=== PATIENT | male | born 1965 | race Caucasian/White ===

== ENCOUNTER 2019-08-29 14:38 | Emergency (ER) | payer BC ==
[2019-08-29] MEDS ORDERED: ASPIRIN 81 MG TABLET, CHEWABLE PO ONE (15:01)
--- NOTE | 2019-08-29 15:01 | ER Document Report ---
ED Medical Screen (RME) - General Stated Complaint: CHEST PAIN Time Seen by Provider: 08/29/19 14:57 Primary Care Provider: WILLIAMS RAJPUT MD [Primary Care Provider] - Follow up as needed Mode of Arrival: Wheelchair Information source: Patient Notes: 54-year-old male presented to ED for chest pain that started yesterday. He states it is more heaviness than pain. He states he gets short of breath with any activity. He states he has had chest pain in the past but never like this. He states his pressure is like a 3 out of 5 he is not really having pain per se as pressure. States the pain goes to his neck into his shoulders both sides. 2-3 maybe 4 cigarettes cigars. He states he was out and he day yesterday and today. He states today he became very lightheaded and dizzy and that is why he came to the emergency room. I have greeted and performed a rapid initial assessment of this patient. A comprehensive ED assessment and evaluation of the patient, analysis of test results and completion of medical decision making process will be conducted by an additional ED providers. - Related Data Allergies/Adverse Reactions: tramadol [Tramadol] Allergy (Verified 07/03/11 07:41) Past Medical History - Immunizations Hx Diphtheria, Pertussis, Tetanus Vaccination: No Physical Exam - Vital signs Vitals: Temp Pulse Resp BP Pulse Ox 97.8 F 90 18 143/93 H 96 08/29/19 14:47 08/29/19 14:47 08/29/19 14:47 08/29/19 14:47 08/29/19 14:47 Course - Vital Signs Vital signs: Temp Pulse Resp BP Pulse Ox 97.8 F 90 18 143/93 H 96 08/29/19 14:47 08/29/19 14:47 08/29/19 14:47 08/29/19 14:47 08/29/19 14:47 Doctor's Discharge - Discharge Referrals: WILLIAMS RAJPUT MD [Primary Care Provider] - Follow up as needed
[2019-08-29 15:39] LABS: ABSOLUTE BASOPHILS # (AUTO) 0.1 10^3/uL (0.0-0.2); ABSOLUTE EOSINOPHILS # (AUTO) 0.2 10^3/uL (0.0-0.6); ABSOLUTE LYMPHOCYTES (AUTO) 2.3 10^3/uL (0.5-4.7); ABSOLUTE MONOCYTES (AUTO) 0.7 10^3/uL (0.1-1.4); ABSOLUTE NEUT (AUTO) 6.7 10^3/uL (1.7-8.2); BASOPHILS % (AUTO) 0.8 % (0-2); HEMATOCRIT 44.2 % (37.9-51.0); HEMOGLOBIN 15.1 g/dL (13.5-17.0); LYMPHOCYTES % (AUTO) 22.9 % (13-45); MEAN CORPUSCULAR HEMOGLOBIN 29.5 pg (27.0-33.4); MEAN CORPUSCULAR HGB CONC 34.1 g/dL (32.0-36.0); MEAN CORPUSCULAR VOLUME 87 fl (80-97); PLATELET COUNT 250 10^3/uL (150-450); RED BLOOD COUNT 5.11 10^6/uL (4.35-5.55); RED CELL DISTRIBUTION WIDTH 13.7 % (11.5-14.0); SEGMENTED NEUTROPHILS % (AUTO) 67.3 % (42-78); TOTAL CELLS COUNTED % (AUTO) 100 %; WHITE BLOOD COUNT 9.9 10^3/uL (4.0-10.5)
[2019-08-29 15:45] LABS: PROTHROMBIN TIME 13.2 SEC (11.4-15.4)
[2019-08-29 15:46] LABS: PARTIAL THROMBOPLASTIN TIME 31.4 SEC (23.5-35.8)
[2019-08-29 15:55] LABS: ALBUMIN 4.4 g/dL (3.5-5.0); ALKALINE PHOSPHATASE 75 U/L (38-126); ANION GAP 10 (5-19); ASPARTATE AMINO TRANSFERASE 21 U/L (17-59); BILIRUBIN,DIRECT 0.1 mg/dL (0.0-0.4); BILIRUBIN,TOTAL 0.4 mg/dL (0.2-1.3); BLOOD UREA NITROGEN 17 mg/dL (7-20); CALCIUM 9.5 mg/dL (8.4-10.2); CARBON DIOXIDE 25 mmol/L (22-30); CHLORIDE 105 mmol/L (98-107); CREATINE KINASE 114 U/L (55-170); GLUCOSE 95 mg/dL (75-110); POTASSIUM 4.1 mmol/L (3.6-5.0); TOTAL PROTEIN 7.3 g/dL (6.3-8.2)
[2019-08-29 16:13] LABS: CREATINE KINASE MB 0.99 ng/mL (<4.55); NT PRO BNP 25 pg/mL (5-900)
[2019-08-29 16:20] LABS: TROPONIN I < 0.012 ng/mL
--- NOTE | 2019-08-29 16:59 | RADIOLOGY REPORT (SQ) ---
EXAM DESCRIPTION: CHEST 2 VIEWS COMPLETED DATE/TIME: 08/29/2019 3:50 pm REASON FOR STUDY: chest paressure COMPARISON: 11/24/2008 EXAM PARAMETERS: NUMBER OF VIEWS: two views TECHNIQUE: Digital Frontal and Lateral radiographic views of the chest acquired. RADIATION DOSE: NA LIMITATIONS: none FINDINGS: LUNGS AND PLEURA: No opacities, masses or pneumothorax. No pleural effusion. MEDIASTINUM AND HILAR STRUCTURES: No masses or contour abnormalities. HEART AND VASCULAR STRUCTURES: Heart normal size. No evidence for failure. BONES: No acute findings. HARDWARE: None in the chest. OTHER: No other significant finding. IMPRESSION: NO ACUTE RADIOGRAPHIC FINDING IN THE CHEST. TECHNICAL DOCUMENTATION: JOB ID: [id number] [employer]- All Rights Reserved Reading location - IP/workstation name: [email or web address]
--- NOTE | 2019-08-29 17:02 | RADIOLOGY REPORT (SQ) ---
EXAM DESCRIPTION: U/S ABDOMEN LTD W/DOPPLER COMPLETED DATE/TIME: 08/29/2019 4:52 pm REASON FOR STUDY: Chest pain due to shoulders COMPARISON: None. TECHNIQUE: Dynamic and static grayscale images acquired of the abdomen and recorded on PACS. Anno christina selected color Doppler and spectral images recorded. LIMITATIONS: None. FINDINGS: PANCREAS: The pancreas is obscured by overlying bowel gas. LIVER: Echotexture is coarse with increased echogenicity consistent with fatty infiltration. There i s hepatomegaly. The liver measures 19.2 cm in length. LIVER VASCULATURE: Normal directional flow of the main portal vein and hepatic veins. GALLBLADDER: No stones. Normal wall thickness. No pericholecystic fluid. ULTRASOUND-DETECTED AMADOR'S SIGN: Negative. INTRAHEPATIC DUCTS AND COMMON DUCT: CBD and intrahepatic ducts normal caliber. No filling defects. INFERIOR VENA CAVA: Normal flow. AORTA: No aneurysm. RIGHT KIDNEY: Normal size. Normal echogenicity. No solid or suspicious masses. No hydronephros is. No calcifications. PERITONEAL AND RIGHT PLEURAL SPACE: No ascites or effusions. OTHER: No other significant finding. IMPRESSION: Fatty infiltrated liver. Hepatomegaly. No other significant findings. TECHNICAL DOCUMENTATION: JOB ID: [id number] [employer]- All Rights Reserved Reading location - IP/workstation name: [email or web address]
[2019-08-29] MEDS ORDERED: NITROGLYCERIN 0.4 MG/TAB 25 TAB/BOTTLE SL PRN (17:56)
[2019-08-29] MEDS ORDERED: LIDOCAINE 2% VISCOUS SOLN 20 ML UDCUP PO ONE (18:14)
[2019-08-29] MEDS ORDERED: MAG HYDROX/AL HYDROX/SIMETH SUSP 30 ML UDCUP PO ONE (18:14)
[2019-08-29] MEDS ORDERED: FAMOTIDINE 20 MG TABLET PO ONE (18:14)
[2019-08-29 19:22] LABS: APPEARANCE,URINE CLEAR; BILIRUBIN,URINE NEGATIVE (NEGATIVE); COLOR,URINE STRAW; GLUCOSE, URINE NEGATIVE (NEGATIVE); KETONES,URINE NEGATIVE (NEGATIVE); LEUKOCYTE ESTERASE,URINE NEGATIVE (NEGATIVE); NITRITE,URINE NEGATIVE (NEGATIVE); PROTEIN,URINE NEGATIVE (NEGATIVE); UROBILINOGEN,URINE NEGATIVE mg/dL (<2.0)
[2019-08-29] MEDS ORDERED: IBUPROFEN 800 MG TABLET PO ONE (19:53)
[2019-08-29] MEDS ORDERED: METHOCARBAMOL 750 MG TABLET PO ONE (19:54)
[2019-08-29 20:06] VITALS: BP 154/105
--- NOTE | 2019-08-29 20:07 | ER Document Report ---
ED General - General Chief Complaint: Chest Pain Stated Complaint: CHEST PAIN Time Seen by Provider: 08/29/19 14:57 Primary Care Provider: WILLIAMS RAJPUT MD [NO LOCAL MD] - Follow up as needed Mode of Arrival: Wheelchair Information source: Patient, Parent TRAVEL OUTSIDE OF THE [place] IN LAST 30 DAYS: No - HPI Notes: Patient is a 54-year-old white male presents the emergency department with report of chronic mid back pain that he is not taking any medications for but reports previous steroid injections and other interventions but states he feels back pain has been radiating somewhat around to the chest noted bilaterally. Th is is nonexertional. He states if he lays on his side it hurts his back and chest less. The patient reports after working in the heat he felt somewhat lightheaded and dizzy but did not have any change with his chest pain. He reported no focal numbness or weakness. The patient denies any associated nausea or fever. He reports no exertional component to the chest pain. The patient states he can briefly lay on his back without any worsening discomfort but over time it seems to become uncomfortable. The patient reports no incontinence. He states he has minimal cough that is nonproductive. Family history cardiac disease at older ages with father having an HI in his late 70s and is still alive. There is a family history of diabetes. History of diverticular surgery with a 6 inch resection history of cardiac stress test x2-3 times previously for the same type of chest discomfort, last one was -3 years ago. Patient does admit he is been out of his losartan for approximately 1 month. - Related Data Allergies/Adverse Reactions: tramadol [Tramadol] Allergy (Verified 08/29/19 14:57) Past Medical History - General Information source: Patient - Social History Smoking Status: Current Every Day Smoker Chew tobacco use (# tins/day): No Frequency of alcohol use: Occasional Drug Abuse: None Family History: CAD - CAD older ages Patient has suicidal ideation: No Patient has homicidal ideation: No - Immunizations Hx Diphtheria, Pertussis, Tetanus Vaccination: No Review of Systems - Review of Systems -: Yes All other systems reviewed and negative Physical Exam - Vital signs Vitals: Temp Pulse Resp BP Pulse Ox 97.8 F 90 18 143/93 H 96 08/29/19 14:47 08/29/19 14:47 08/29/19 14:47 08/29/19 14:47 08/29/19 14:47 - Notes Notes: PHYSICAL EXAMINATION: GENERAL: Well-appearing, well-nourished and in no acute distress. HEAD: Atraumatic, normocephalic. EYES: Pupils equal round and reactive to light, extraocular movements intact, sclera anicteric, conjunctiva are normal. ENT: Nares patent, oropharynx clear without exudates. Moist mucous membranes. NECK: Normal range of motion, supple without lymphadenopathy LUNGS: Breath sounds clear to auscultation bilaterally and equal. No wheezes rales or rhonchi. HEART: Regular rate and rhythm without murmurs. Anterior chest wall pain that is reproducible on exam. This seems to radiate from the back however on palpation. There is no crepitance or bony deformity or erythema. ABDOMEN: Soft, nontender, nondistended abdomen. No guarding, no rebound. No masses appreciated. Musculoskeletal: Normal range of motion, no pitting or edema. No cyanosis. Negative Homans. No palpable cord. NEUROLOGICAL: Cranial nerves grossly intact. Normal speech, normal gait. Normal sensory, motor exams PSYCH: Normal mood, normal affect. SKIN: Warm, Dry, normal turgor, no rashes or lesions noted. He is asymptomatic Course - Re-evaluation Re-evalutation: 08/29/19 20:14 Patient was given nitro with no change in his pain. Is given GI cocktail with no change. He was given Robaxin and ibuprofen later. The patient reported the pain seemed more musculoskeletal. There is no evidence for acute cholecystitis or hepatitis or electrolyte imbalance or anemia or diabetes or UTI or infectious etiology or pneumonia. Patient was informed the need to follow-up for repeat cardiac stress testing and he was counseled about the need to quit smoking. With 2- troponins and negative EKG, patient is ruled out for HI but I cannot completely exclude cardiac ischemia and he is aware of this and the need for follow-up. 08/29/19 20:15 - Vital Signs Vital signs: Temp Pulse Resp BP Pulse Ox 97.8 F 90 16 135/110 H 99 08/29/19 14:47 08/29/19 14:47 08/29/19 18:01 08/29/19 18:01 08/29/19 18:01 - Laboratory Result Diagrams: 08/29/19 15:21 08/29/19 15:21 - EKG Interpretation by Me EKG shows normal: Sinus rhythm Additional EKG results interpreted by me: 08/29/19 20:10 EKG as interpreted by me showed normal sinus rhythm heart rate of 93. There is no gross evidence for acute HI or ischemia noted. There is no old EKG available for comparison. Discharge - Discharge Clinical Impression: Chest pain Qualifiers: Chest pain type: unspecified Qualified Code(s): R07.9 - Chest pain, unspecified Condition: Stable Disposition: HOME, SELF-CARE Instructions: Chest Pain of Unclear Cause ([facility]) Additional Instructions: Follow-up with your regular practitioner concerning your chest and back pain this Monday. If pain persists, then you need a follow-up cardiac stress test. Return to the ED in case of worsening pain, difficulty breathing, nausea. Prescriptions: Metaxalone 400 mg PO Q6HP PRN #30 tablet PRN Reason: Ibuprofen [Ibu] 800 mg PO Q8HP PRN #30 tablet PRN Reason: Losartan Potassium 100 mg PO DAILY #30 tablet Referrals: WILLIAMS RAJPUT MD [NO LOCAL MD] - Follow up as needed
--- NOTE | 2019-08-29 21:50 | EKG REPORT ---
SEVERITY:- NORMAL ECG - SINUS RHYTHM : Confirmed by: Oriana Calles MD 29-Aug-2019 21:49:40
== END 2019-08-29 20:14 | disposition home or self-care (01) ==
LOC: ER 14:38
DX: R07.9 Chest pain, unspecified (principal); M54.6 Pain in thoracic spine; R42 Dizziness and giddiness; F17.200 Nicotine dependence, unspecified, uncomplicated
CPT/HCPCS: 93005; 36415; 82553; 82550; 83690; 83735; 85025; 85610; 85730; 80053; 81001; 84484; 83880; 71046; 76705; 93976; 93010; J3490